=== PATIENT | female | born 1950 | race Caucasian/White ===

== ENCOUNTER 2018-03-05 11:17 | Outpatient (REF) | payer OTHER, SELFPAY ==
[2018-03-05 22:24] LABS: ALT 35 U/L (12-78); AST 24 U/L (15-37); Albumin 3.7 g/dL (3.4-5.0); Alkaline Phosphatase 54 U/L (46-116); Anion Gap 6.8 mmol/L (3-11); BUN 16 mg/dL (7-18); Bilirubin, Total 0.5 mg/dL (0.2-1.0); CO2 29.2 mmol/L (21.0-32.0); CREATININE 0.88 mg/dL (0.55-1.02); Calcium 8.9 mg/dL (8.5-10.1); Chloride 103 mmol/L (98-107); Cholesterol 275 mg/dL (50-200); Glucose 96 mg/dL (70-100); HDL Cholesterol 48 mg/dL (40-60); LDL CHOLESTEROL 202 mg/dL (<100); Potassium 4.3 mmol/L (3.5-5.1); Sodium 139 mmol/L (136-145); Total Protein 7.1 g/dL (6.4-8.2); Triglyceride 135 mg/dL (30-150)
[2018-03-05 22:28] LABS: Hemoglobin A1C 5.4 % (4.5-6.2)
== END 2018-03-05 11:37 ==
LOC: NCHCN 11:17
PROVIDERS: PCP Family Medicine; Visit Provider Family Medicine
DX: E88.81 Metabolic syndrome and other insulin resistance (principal)
CPT/HCPCS: 80053; 80061; 83721; 83036

== ENCOUNTER 2019-01-22 10:29 | Outpatient (REF) | payer OTHER, SELFPAY ==
[2019-01-22 22:17] LABS: ALT 29 U/L (12-78); AST 16 U/L (15-37); Albumin 3.7 g/dL (3.4-5.0); Alkaline Phosphatase 59 U/L (46-116); Anion Gap 9.2 mmol/L (3-11); BUN 13 mg/dL (7-18); Bilirubin, Total 0.3 mg/dL (0.2-1.0); CO2 29.8 mmol/L (21.0-32.0); CREATININE 0.74 mg/dL (0.55-1.02); Calculated LDL 233 mg/dL; Chloride 102 mmol/L (98-107); Cholesterol 312 mg/dL (50-200); Glucose 109 mg/dL (70-100); HDL Cholesterol 48 mg/dL (40-60); Potassium 4.1 mmol/L (3.5-5.1); Sodium 141 mmol/L (136-145); Total Protein 7.2 g/dL (6.4-8.2); Triglyceride 155 mg/dL (30-150)
[2019-01-25 12:22] LABS: Vitamin D 25 Total 33.4 ng/ml (30-100)
== END 2019-01-22 10:49 ==
LOC: NCHCN 10:29
PROVIDERS: PCP Family Medicine; Visit Provider Family Medicine
DX: Z00.00 Encounter for general adult medical examination without abnormal findings (principal); E88.81 Metabolic syndrome and other insulin resistance; I10 Essential (primary) hypertension; E78.5 Hyperlipidemia, unspecified; R73.09 Other abnormal glucose; E66.9 Obesity, unspecified
CPT/HCPCS: 80053; 80061; 82306; 83721

== ENCOUNTER 2019-08-22 18:06 | Emergency (ER) | payer OTHER, SELFPAY ==
[2019-08-22] VITALS (23 sets, daily range): BP systolic 147–201; BP diastolic 67–93; PULSE 60–79; RESP 10–20; O2SAT 95–98
--- NOTE | 2019-08-22 18:15 | DI.CT_ITS ---
EXAM: CT HEAD WO CLINICAL HISTORY: Headache and mild confusion COMPARISON: No exams were available for comparison FINDINGS: Noncontrast cranial CT was performed. There are mild changes of cerebral atrophy and mild patchy are as of decreased attenuation noted in periventricular white matter consistent with microvascular ische noel change. No evidence of acute intracranial hemorrhage, mass effect, or midline shift. The orbital and tempora l bone structures appear unremarkable. Mastoid air cells and paranasal sinuses predominantly clear w ith mild mucoperiosteal thickening maxillary antra and a probable small left maxillary retention cyst . IMPRESSION: No evidence of acute intracranial process.
--- NOTE | 2019-08-22 18:27 | ED.GENADUL_ITS ---
Discharge Plan Disposition Patient Disposition: HOME Condition: Improving Discharge Details Chief Complaint: AMS/LOC Clinical Impression: Migraine headache Primary Care Provider: Gildardo Pizano ED Provider: Pastor Millan Home Meds and New Rx's Prescriptions: Continued Flovent Diskus 50 MCG blister with device 50 mcg Inhalation DAILY RF: 0 citalopram 40 MG tablet 40 mg PO DAILY RF: 0 losartan-hydrochlorothiazide 1 EACH tablet 1 ea PO DAILY RF: 0 One Daily Womens 50 Plus 0.4 MG tablet 0.4 mg PO DAILY RF: 0 Discharge Instructions Additional Instructions: Home to rest this evening. Please sleep in a dark, quiet room. Continue small, frequent sips of fluids to maintain hydration. Continue your regular medications. Return to the ER if develop a fever, recurrent headache, or any other acute concerns. Medical Decision Making 69-year-old female presents with with the onset of a headache this afternoon at home with some mild confusion. She has known hypertension, also history of migraine headaches. She arrives slightly hypertensive but with otherwise unremarkable vital signs and her neurologic examination is normal. Differential diagnosis includes CVA, migraine headache, fugue-like state. Patient IV access established, referred for stat CT scan of the head, as well as CT images. CT with no evidence for acute infarct, hemorrhage, or mass-effect. Patient given ketorolac. Labs are reassuring. The CBC is within normal limits, chemistries note slight elevation of the BUN to 19, otherwise unremarkable with normal LFTs, normal troponin. Patient is improving. Following ketorolac, acetaminophen and a small amount of fluid administration, the patient is without further complaint and blood pressure has improved to 177/67. She states is now is beginning to feel like a migraine. She is improved and appropriate for discharge back to home. ECG Data Attestation: I personally reviewed and interpreted this ECG (s) as follows: Interpretation: Normal sinus rhythm, rate is 64, QRS is narrow, no ST segment elevation present, QTC of 448 HPI General Mode of arrival: ambulatory . Date/Time Provider Initiated Documentation: 08/22/19 18:08 . Limitations to Documentation: no limitations . Information obtained by: patient and family . History of Present Illness 69 year old F presents to the emergency department with the chief complaint of Headache and confusion at home, now improving., described as moderate and similar to prior episodes, Quality is described as dull and constant, and is localized to the head. Patient reports no radiation. Patient started experiencing this hour(s) and it has been other (Improving). No relieving factors improve symptom(s), No exacerbating factors reported . Patient notes headaches; denies fever/chills, loss of appetite, nausea/vomiting, syncope and weakness. Patient did receive the following treatments prior to arrival, none Related Data Home Medications Medication Instructions Recorded Confirmed Flovent Diskus 50 mcg INHALATION DAILY 01/03/17 08/22/19 One Daily Womens 50 Plus 0.4 mg PO DAILY 01/03/17 08/22/19 citalopram 40 mg PO DAILY 01/03/17 08/22/19 losartan-hydrochlorothiazide 1 ea PO DAILY 01/03/17 08/22/19 Allergies Allergy/AdvReac Type Severity Reaction Status Date / Time bupropion [From Wellbutrin] Allergy Unverified 08/22/19 18:24 prednisone Allergy Unverified 08/22/19 18:24 simvastatin [From Zocor] AdvReac Unverified 08/22/19 18:24 varenicline [From Chantix] AdvReac Unverified 08/22/19 18:24 General Stated Complaint: AMS/LOC RONNY: 2 Review of Systems Narrative: Seem to have some repetitive questioning at home, now improving, headache is improving. No fall or injury. No difficulty with speech or gait. No focal weakness. 8 systems reviewed and otherwise negative [facility] Social History Smoking/Tobacco Use Status: Former Tobacco Use Do you feel safe in your relationship?: Yes Exam Narrative Exam Narrative: GEN: awake, alert, oriented 3. Pleasant, well groomed, interactive. HEAD: Normocephalic, atraumatic ENT: Mucous membranes moist, oropharynx unremarkable, External ear exam unremarkable EYES: PERRL, EOMI NECK: Full ROM, no KARINA, no menigismus CHEST/RESP: Nontender, clear to auscultation bilateral, no wheeze/rhonchi/rales CARDIOVASCULAR: RRR, no murmur, rub natacha. 2+ Rad pulse bilateral ABDOMEN: Soft, nontender, no mass. +Bowel sounds EXT: Full ROM, no edema, no rash Neuro: Grossly normal neurologic exam, conversant, interactive. Cranial nerves II through XII intact. Visual levy intact to confrontation. Gait is narrow based with good heel strike and the patient ambulates independently. Psych: Speech fluent, thoughts congruent, affect normal Course Vital Signs Vital signs: Vital Signs Pulse 78 08/22/19 18:12 Respiratory Rate 16 08/22/19 18:12 Blood Pressure 201/93 H 08/22/19 18:12 Pulse 78 08/22/19 18:12 Respiratory Rate 16 08/22/19 18:12 Respiratory Effort 08/22/19 18:15 Respiratory Depth Normal 08/22/19 18:15 Respiratory Pattern Normal 08/22/19 18:15 Blood Pressure 201/93 H 08/22/19 18:12 Blood Pressure Position Supine 08/22/19 18:12 Oxygen Delivery Method Room Air 08/22/19 18:12 Oxygen Flow Rate 0 08/22/19 18:12 Pain Level 0 08/22/19 18:12 Comment 08/22/19 18:12
[2019-08-22] MEDS: Normal Saline 1,000 ML 125 ML IV (18:41)
[2019-08-22 18:42] LABS: Abs Immature Grans 0.01 k/cumm (0.0-0.09); Absolute Basophil Count 0.02 k/cumm (0.0-0.2); Absolute Eosinophil Count 0.14 k/cumm (0.0-0.7); Absolute Lymphocyte Count 2.16 k/cumm (1.2-3.4); Absolute Monocyte Count 0.68 k/cumm (0.11-0.7); Absolute Neutrophil Count 4.35 k/cumm (1.2-6.7); Basophils % 0.3; Eosinophils % 1.9; HCT 40.1 % (36.0-46.0); HGB 13.9 g/dL (12.0-15.5); Immature Grans % 0.1 %; Lymphocytes % 29.3; Mean Corp. HGB Concentration 34.7 g/dL (32.0-36.0); Mean Corpuscular Hemoglobin 29.8 pg (27.0-33.0); Mean Corpuscular Volume 86.1 fL (80-95); Mean Platelet Volume 9.7 fL (8.0-11.0); Monocytes % 9.2; Neutrophils % 59.2; Platelet Count 325 x1000/uL (130-400); RBC 4.66 m/cumm (4.00-5.20); RBC Distribution Width 12.1 % (11.7-14.6); White Blood Cell Count 7.36 k/cumm (4.4-10.8)
[2019-08-22] MEDS: Ketorolac 15 MG/ML VIAL IVP (18:49)
--- NOTE | 2019-08-22 18:54 | DI.VRAD_ITS ---
PROCEDURE INFORMATION: Exam: CT Head Without Contrast Exam date and time: 08/22/2019 6:37 PM Age: 69 years old Clinical indication: Pain; Other: Mild confusion; Headache not specified TECHNIQUE: Imaging protocol: Computed tomography of the head without contrast. COMPARISON: No relevant prior studies available. FINDINGS: Brain: Age-related involutional changes and chronic microvascular ischemic disease. No evidence for acute transcortical infarct. No mass effect or midline shift. No extra-axial collection. No acute intracranial hemorrhage. Basal cisterns are patent. Ventricles: Normal. No ventriculomegaly. Bones/joints: Unremarkable. No acute fracture. Sinuses: Polyp versus retention cyst within the left maxillary sinus. Mucosal thickening involving the bilateral maxillary sinuses. Mastoid air cells: Visualized mastoid air cells are well aerated. Orbits: Bilateral cataract surgery. Soft tissues: Unremarkable. IMPRESSION: No evidence for acute transcortical infarct, acute intracranial hemorrhage, or mass effect. Dictated and Authenticated by: Nico Edge MD. Ordering:MARIELLE Baumann MD
[2019-08-22 19:02] LABS: ALT 19 U/L (14-59); AST 16 U/L (15-37); Alkaline Phosphatase 54 U/L (46-116); Anion Gap 6.6 mmol/L (3-11); BUN 19 mg/dL (7-18); Bilirubin, Total 0.3 mg/dL (0.2-1.0); CO2 28.4 mmol/L (21.0-32.0); CREATININE 0.78 mg/dL (0.55-1.02); Calcium 9.1 mg/dL (8.5-10.1); Chloride 102 mmol/L (98-107); Glucose 94 mg/dL (74-106); Magnesium 1.9 mg/dL (1.8-2.4); Potassium 3.5 mmol/L (3.5-5.1); Sodium 137 mmol/L (136-145); Total Protein 7.8 g/dL (6.4-8.2); Troponin I < 0.05 ng/Ml (<0.06)
[2019-08-22] MEDS: ACETAMINOPHEN 1,000 MG/100 ML BTL 400 MG IVPB (19:28)
== END 2019-08-22 20:20 | disposition home or self-care (01) ==
PROVIDERS: Emergency Provider Emergency Medicine; PCP Family Medicine
DX: R41.82 Altered mental status, unspecified (principal); G43.909 Migraine, unspecified, not intractable, without status migrainosus; I10 Essential (primary) hypertension
CPT/HCPCS: 36415; 80053; 93005; 96361; 96374; 96375; 99285; 70450; 83735; 84484; 85025; 93010; 99284; J0131; J1885

== ENCOUNTER 2021-01-09 17:05 | Outpatient (REF) | payer OTHER, SELFPAY ==
[2021-01-09 21:15] LABS: Hemoglobin A1C 5.4 % (<5.7)
[2021-01-09 21:22] LABS: ALT 24 U/L (14-59); AST 17 U/L (15-37); Albumin 3.7 g/dL (3.4-5.0); Alkaline Phosphatase 48 U/L (46-116); Anion Gap 7.6 mmol/L (3-11); BUN 18 mg/dL (7-18); Bilirubin, Total 0.4 mg/dL (0.2-1.0); CO2 30.4 mmol/L (21.0-32.0); CREATININE 0.9 mg/dL (0.55-1.02); Chloride 103 mmol/L (98-107); Glucose 97 mg/dL (74-106); Potassium 4.3 mmol/L (3.5-5.1); Sodium 141 mmol/L (136-145); Total Protein 7.2 g/dL (6.4-8.2)
[2021-01-10 19:59] LABS: Calculated LDL 191 mg/dL (<100); Cholesterol 283 mg/dL (<200); HDL Cholesterol 41 mg/dL (40-60); Triglyceride 255 mg/dL (<150)
== END 2021-01-09 17:06 | disposition home or self-care (01) ==
LOC: NCHCN 17:05
PROVIDERS: PCP Family Medicine; Visit Provider Family Medicine
DX: R73.03 Prediabetes (principal); E88.81 Metabolic syndrome and other insulin resistance; E78.5 Hyperlipidemia, unspecified; E66.3 Overweight; I10 Essential (primary) hypertension
CPT/HCPCS: 80053; 80061; 83036

== ENCOUNTER → 2021-01-30 02:15 | Outpatient (CLI) | payer OTHER, SELFPAY ==
--- NOTE | 2021-01-30 14:54 | DI.MAMMO_ITS ---
Exam(s) MAMMO SCREENING EXAM: MAMMO SCREENING CLINICAL HISTORY: SCREENING, Z12.31. TECHNIQUE: Bilateral full field digital CC and MLO mammographic images were obtained with 3D tomosyn thesis and utilizing computer aided detection (CAD). COMPARISON: Prior outside mammograms dating back to 2006, the most recent being December 2018. FINDINGS: There are no CAD designations. There are no new spiculated masses nor malignant appearing microcalcification groups. Small benign-appearing nodule upper outer quadrant left breast is unchanged from prior studies and cam s appearance of benign intramammary lymph node. There is no significant architectural distortion nor skin thickening-retraction. IMPRESSION: No radiographic evidence of malignancy. BI-RADS Category 1 - Negative Breast Density - Category B - Scattered areas of fibroglandular density Breast density Category C or D implies that the patient has dense breast tissue. Dense breast tissue can make it harder to find cancer on a mammogram. Dense breast tissue is also associated with an incr eased risk of breast cancer. This information about the result of the mammogram report was provided to the patient to raise their awareness. Use this report when you speak with the patient about their risks for breast cancer, which includes their family history. At that time, you may recommend additional screening tests (Ultrasoun d or MRI) as these tests may add significant information. A negative radiographic report should not delay biopsy if a dominant or clinically suspicious mass is present. Up to ten percent of cancers are not identified on mammography. A negative report may reinforce clinical impression. Adenosis and dense breasts may obscure an underlying neoplasm. False positive reports average 6 to 10%. Patient will receive a letter notifying them of these results.
== END ==
PROVIDERS: PCP Family Medicine; Visit Provider Family Medicine
DX: Z12.31 Encounter for screening mammogram for malignant neoplasm of breast (principal)
CPT/HCPCS: 77063; 77067

== ENCOUNTER 2021-02-08 03:03 | Outpatient (CLI) | payer OTHER, SELFPAY ==
--- NOTE | 2021-02-08 | DI.DEXA_ITS ---
Exam(s) XR DEXA BONE DENSITY W/WO GRACIE EXAM: XR DEXA BONE DENSITY W/WO GRACIE CLINICAL HISTORY: SCREENING FOR OSTEOPOROSIS,Z78.0,OSTEOPENIA,M85.80 TECHNIQUE: COMPARISON: No exams were available for comparison FINDINGS: Lateral Spine Image: Unremarkable. No compression deformities identified. Left hip: Total T-Score: -0.4 Total Z-Score: 1.1 T- and Z-scores: Within normal limits. Lumbar Spine: Total T-Score: -0.3 Total Z-Score: 1.8 T- and Z-scores: Within normal limits. IMPRESSION: No evidence of osteoporosis.
== END 2021-02-08 03:23 ==
PROVIDERS: PCP Family Medicine; Visit Provider Family Medicine
DX: Z13.820 Encounter for screening for osteoporosis (principal); M85.80 Other specified disorders of bone density and structure, unspecified site; Z78.0 Asymptomatic menopausal state
CPT/HCPCS: 77080

== ENCOUNTER 2021-02-27 11:18 | Outpatient (REF) | payer MEDICARE, SELFPAY ==
[2021-02-27 15:07] LABS: Abs Immature Grans 0.02 10^3/uL (0.0-0.06); Absolute Basophil Count 0.03 10^3/uL (0.0-0.2); Absolute Eosinophil Count 0.18 10^3/uL (0.0-0.7); Absolute Lymphocyte Count 1.42 10^3/uL (1.2-3.4); Absolute Monocyte Count 0.49 10^3/uL (0.1-0.8); Absolute Neutrophil Count 4.22 10^3/uL (1.2-6.7); Basophils % 0.5; Eosinophils % 2.8; HCT 39.7 % (36.0-46.0); HGB 12.7 g/dL (11.2-15.7); Immature Grans % 0.3; Lymphocytes % 22.3; MCH 28.5 pg (27.0-33.0); MPV 10.2 fL (8.0-11.0); Monocytes % 7.7; Neutrophils % 66.4; Nucleated RBC 0 %; Platelet Count 303 10^3/uL (130-400); RBC 4.46 10^6/uL (3.93-5.22); RDW 11.4 % (11.7-14.6); RDW-SD 36.6 fL; WBC 6.36 10^3/uL (4.4-10.8)
[2021-02-27 15:55] LABS: ALT 31 U/L (14-59); AST 21 U/L (15-37); Albumin 3.7 g/dL (3.4-5.0); Alkaline Phosphatase 54 U/L (46-116); BUN 12 mg/dL (7-18); Bilirubin, Total 0.4 mg/dL (0.2-1.0); CREATININE 0.8 mg/dL (0.55-1.02); Calcium 9.3 mg/dL (8.5-10.1); Calculated LDL 198 mg/dL (<100); Chloride 103 mmol/L (98-107); Cholesterol 282 mg/dL (<200); Glucose 90 mg/dL (74-106); HDL Cholesterol 48 mg/dL (40-60); Potassium 4.6 mmol/L (3.5-5.1); Sodium 141 mmol/L (136-145); TSH (W/Ref FT4) 1.16 uIU/mL (0.36-3.74); Total Protein 7.2 g/dL (6.4-8.2); Triglyceride 184 mg/dL (<150)
[2021-02-28 11:56] LABS: Hemoglobin A1C 5.6 % (<5.7)
== END 2021-02-27 11:19 | disposition home or self-care (01) ==
LOC: NCHCN 11:18
PROVIDERS: PCP Family Medicine; Visit Provider Family Medicine
DX: Z00.00 Encounter for general adult medical examination without abnormal findings (principal); E78.5 Hyperlipidemia, unspecified; R68.83 Chills (without fever)
CPT/HCPCS: 80053; 80061; 83036; 84443; 85025

== ENCOUNTER 2021-03-19 10:34 | Emergency (ER) | payer MEDICARE, SELFPAY ==
--- NOTE | 2021-03-19 10:30 | RT.EKG_ITS ---
APPROVED REPORT Exam: Resting ECG Reason for Exam: dizzy Patient Location: E HR:64 bpm ECG Measurements Heart Rate 64 AXIS TN 221 P 34 QRSd 81 QRS 14 QT 458 T 43 QTc 472 Conclusion Sinus rhythm...normal P axis, V-rate 60- 99 Prolonged TN interval...TN >220, V-rate 50- 90 Probable anteroseptal infarct, recent...Q, ST>0.15mV, T neg, V1-V2 no STEMI I have reviewed and interpreted ECG and agree with software generated interpretation.
[2021-03-19 10:42] VITALS: BP 167/89; PULSE 67; RESP 18; TEMP 36.5; O2SAT 99
[2021-03-19 10:50] VITALS: RESP 18
[2021-03-19 11:33] LABS: Abs Immature Grans 0.02 10^3/uL (0.0-0.06); Absolute Basophil Count 0.02 10^3/uL (0.0-0.2); Absolute Eosinophil Count 0.19 10^3/uL (0.0-0.7); Absolute Lymphocyte Count 1.53 10^3/uL (1.2-3.4); Absolute Monocyte Count 0.72 10^3/uL (0.1-0.8); Absolute Neutrophil Count 5.24 10^3/uL (1.2-6.7); Basophils % 0.3; Eosinophils % 2.5; HGB 12.2 g/dL (11.2-15.7); Immature Grans % 0.3; Lymphocytes % 19.8; MCV 87.9 fL (80-95); MPV 9.3 fL (8.0-11.0); Monocytes % 9.3; Neutrophils % 67.8; Nucleated RBC 0 %; Platelet Count 253 10^3/uL (130-400); RBC 4.21 10^6/uL (3.93-5.22); RDW 11.6 % (11.7-14.6); RDW-SD 37.4 fL; WBC 7.72 10^3/uL (4.4-10.8)
[2021-03-19] MEDS: Normal Saline 50 ML ×3 (11:51→13:43)
[2021-03-19] MEDS: Normal Saline 500 ML IV ×2 (11:51→13:43)
[2021-03-19] MEDS: Prochlorperazine 10 MG/2 ML VIAL 5 MG IVP ×2 (11:51→13:44)
[2021-03-19 11:56] LABS: ALT 24 U/L (14-59); AST 17 U/L (15-37); Albumin 3.6 g/dL (3.4-5.0); Alkaline Phosphatase 56 U/L (46-116); Anion Gap 3.2 mmol/L (3-11); BUN 23 mg/dL (7-18); Bilirubin, Total 0.4 mg/dL (0.2-1.0); CO2 32.8 mmol/L (21.0-32.0); CREATININE 0.9 mg/dL (0.55-1.02); Chloride 104 mmol/L (98-107); Glucose 94 mg/dL (74-106); Magnesium 1.9 mg/dL (1.8-2.4); Potassium 3.9 mmol/L (3.5-5.1); Sodium 140 mmol/L (136-145); TSH 2.07 uIU/mL (0.36-3.74); Total Protein 7.5 g/dL (6.4-8.2); Troponin I < 0.05 ng/mL (<0.06)
[2021-03-19 12:01] LABS: ESR 13 mm/hr (0-30)
[2021-03-19 12:15] VITALS: BP 147/57; PULSE 71; RESP 18; TEMP 36.1; O2SAT 98
--- NOTE | 2021-03-19 13:12 | DI.CT_ITS ---
Exam(s) CT BRAIN NECK CTA EXAM: CT BRAIN NECK CTA CLINICAL HISTORY: vertical diplopia, cam. TECHNIQUE: Imaging Protocol: Axial CT angiography was performed with multi-slice acquisition and mu lti-planar and/or 3D reconstructions. CONTRAST MATERIAL: Intravenous: Omnipaque 350 Contrast volume:100 cc COMPARISON: No exams were available for comparison FINDINGS: CTA Neck W: Aortic arch anatomy: The aortic arch anatomy is conventional. No evidence of significant stenosis at the origin the great vessels off the aortic arch. Anterior circulation: Both common carotid arteries ascend with normal luminal diameters, somewhat medially located and the bifurcations are also medially located. There is no significant stenosis at the carotid bifurcations and proximal internal carotid arteries nor in the internal carotid arteries higher up in the neck an d these vessels are demonstrated to be patent in the skull base. Posterior circulation: Both vertebral arteries originate off of the subclavian arteries and ascend with approximately equal luminal diameters in the foramen transverse area. No evidence of dissection or intraluminal thrombus . At the skull base both vertebral arteries to contribute to the formation of the basilar artery. CTA Brain W: Anterior circulation: Internal carotid arteries are patent in the skull base and carotid canals as well as within the joe nous sinuses. Supraclinoid aspects are patent. Middle cerebral arteries are patent. A1 segments ar e patent bilaterally as are the anterior cerebral arteries. No evidence of aneurysm at the level of the anterior communicating artery. Posterior circulation: Basilar artery is patent. No intraluminal thrombus nor dissection. Distally basilar artery gives of f patent bilateral superior cerebellar arteries and above this level terminates as patent bilateral p osterior cerebral arteries. There is no evidence of aneurysm at the tip of the basilar artery nor el sewhere in the [id number]. No obvious venous sinus thrombosis. There is asymmetry in the size the transverse sinuses which is n ot uncommon. CT BRAIN: There is no evidence of intracranial hemorrhage, mass effect, or shift of midline structures. There are no extra-axial fluid collections. Ventricles are not enlarged or shifted. There are no ring enh ancing lesions in the brain and no abnormal meningeal enhancement. There is abundant white matter hypodensity bilateral consistent with probable chronic ischemic change s. IMPRESSION: 1. No evidence of significant stenosis in the carotid arteries in the neck. Vertebral arteries are a lso patent. 2. No evidence of thrombosis of intracranial vessels. No aneurysm seen. 3. Abundant bilateral white matter hypodensity consistent with probable chronic small vessel diseas e. 4. If clinically indicated follow-up MRI/MRA can be performed RADIATION DOSE DELIVERED: 2,193.63mGy.cm Total DLP DATA REPOSITORY: All CT scans at this facility are submitted to the National Radiology Data Registry (NRDR) Dose Index Registry (DIR) with the [employer] ([employer]). RADIATION OPTIMIZATION: All CT scans at this facility use at least one of these dose optimization te chniques: automated exposure control; mA and/or kV adjustment per patient size (includes targeted exa ms where dose is matched to clinical indication); or iterative reconstruction.
[2021-03-19] MEDS: Omnipaque 350 MG/ML 100 ML BTL 85 ML IJ (13:16)
[2021-03-19] MEDS: Acetaminophen 500 MG TAB 1000 MG PO (13:43)
--- NOTE | 2021-03-19 14:04 | W.ED.GENAD ---
Discharge Plan Disposition Patient Disposition: AGAINST MEDICAL ADVICE Condition: Poor Discharge Details Clinical Impression: Vision changes, Embolic cerebral infarction Primary Care Provider: Gildardo Pizano ED Provider: Luly Nuñez Home Meds and New Rx's Prescriptions: New clopidogrel [Plavix] 75 mg tablet 75 mg PO DAILY Qty: 14 RF: 0 Continued aspirin 81 mg tablet 81 mg PO DAILY RF: 0 Flovent Diskus 50 MCG blister with device 50 mcg Inhalation DAILY RF: 0 citalopram 40 MG tablet 40 mg PO DAILY RF: 0 losartan-hydrochlorothiazide 1 EACH tablet 1 ea PO DAILY RF: 0 One Daily Womens 50 Plus 0.4 MG tablet 0.4 mg PO DAILY RF: 0 Discharge Instructions Instructions: Acute Headache (ED), Self Care Measures After a Stroke (ED) Additional Instructions: Your imaging is concerning for blood clot in your brain. I am concerned that this potentially could worsen or the source could spread and you may have blood clots to travel other areas. Admission was recommended. However, you are treating to leave AGAINST MEDICAL ADVICE. As was recommended by neurology, please continue with your aspirin and add Plavix as ordered daily. An outpatient echocardiogram has been ordered. You will need to return tomorrow for Holter monitor application by respiratory therapy. Please call your primary care tomorrow to schedule appointment as soon as possible. Please return immediately with any new or worsening symptoms. Referrals: Gildardo Pizano [Primary Care Provider] - Naomi Jack MD [ [facility] STAFF PHYSICIAN] - Discharge Data Discharge Date/Time-TO BE ENTERED AT DEPARTURE: 03/19/21 19:18 Medical Decision Making <JASIEL Ronquillo - Last Filed: 03/20/21 09:10> Patient feeling symptomatically improved after migraine medication, CTA to did not show acute abnormality, case discussed with Dr. Jack, neurology recommended CTA head and neck With change patient for discharge home when we performed an ambulatory trial and patient symptoms returned other now she is having horizontal diplopia with lightheadedness She was given a dose of Decadron and encouraged to hydrate, given fluids MRI of patient's brain was ordered and she will need neurology consultation after MRI should her symptoms persist with an additional ambulatory trial She is laughing and comfortable in the room I did go back and reassessed the patient and she is now telling me that she had a runny nose associated with her headache, she is Covid vaccinated I did order a Covid swab Patient is afebrile otherwise nontoxic, laughing in the room No acute distress CT: On diffusion imaging there are 3 small adjacent foci of restricted diffusion in the posterior right parietal lobe; also similar single finding on the opposite-left side occipital parietal region. Findings are probably consistent with emboli. Close follow-up recommended Case discussed with Dr. Grewal, neurology and she recommends admission to the hospital for telemetry monitoring and echocardiogram Will order aspirin, Plavix, patient unfortunately is listed as being allergic to antilipidemic's, will hold on this for now <JASIEL Tay - Last Filed: 03/20/21 08:30> Care transition to myself from Krista Aguilar PA-C. Please see her initial note regarding history, presentation and exam. In brief, patient pleasant 70-year-old female who presented today with concern for vertical diplopia and frontal headache. Patient underwent CT as well as MRI for further evaluation of her symptoms. Ultimately, MRI was concerning for 3 small adjacent foci of diffusion in the posterior right parietal lobe also similar finding on the contralateral occipital parietal region. Concerning for emboli. Dr. Jack was consulted who recommended admission with telemetry monitoring, echocardiogram, aspirin Plavix. Patient had taken 3 aspirin prior to arrival. Plavix was given. At the time I assumed care, consultation with hospitalist for admission with pending Consulted with Dr. Hurst who will come to evaluate [facility] patient. After patient was evaluated by Dr. Hurst, she is refusing admission. I reevaluated the patient. She would like to be d/c'ed to home. She and I had a lengthy discussion about this. I advised admission for telemonitoring, echocardiagram as was recommended by Dr. Grewal. I am concercend that her neurologic status may worsen as multiple clots were noted on her MRI and that she has had difficulty with ambulation since being here. She does seem to be doing better now and is ambulating without assistance. Despite my concerns about worsening neurologic status or other disability, potentially , associated with the emboli, she requests to leave AMA. She demonstrates decision making capacity. Have ordered echo as outpatient, holter monitor. Will prescribe Plavix as was advised by neurology. She is aware that she may return at any time for continued care. I encouraged that she f/u with PCP as soon as possible. HPI <JASIEL Ronquillo - Last Filed: 03/20/21 09:10> General Mode of arrival: ambulatory. Date/Time Provider Initiated Documentation: 03/19/21 10:55. Limitations to Documentation: no limitations. Information obtained by: patient. HPI Narrative: RA this 70-year-old female presents with report of acute onset of oral and noncardiac burning followed by vertical diplopia and subsequently frontal headache. States she feels lightheaded but denies any dizziness. Denies chest pain or shortness of breath. Denies dizziness or weakness. Denies any strength or sensation change. States she never had vertical diplopia before but does have a history of migraine headaches. She states that the diplopia is improving. She states that the headache is frontal in nature. She denies worst headache of life. She denies any recent falls or injuries. She denies neck manipulation, chest pain, shortness of breath. She denies any fever or chills. She states that she was having some difficulty ambulating secondary to lightheadedness associated. She did not take any medications prior to arrival. She does have a history of migraines with aura. She not had one for several years reportedly. She denies any change in medication. Related Data Home Medications Medication Instructions Recorded Confirmed Flovent Diskus 50 mcg INHALATION DAILY 01/03/17 08/22/19 One Daily Womens 50 Plus 0.4 mg PO DAILY 01/03/17 03/19/21 citalopram 40 mg PO DAILY 01/03/17 03/19/21 losartan-hydrochlorothiazide 1 ea PO DAILY 01/03/17 03/19/21 aspirin 81 mg tablet 81 mg PO DAILY 08/30/19 03/19/21 clopidogrel [Plavix] 75 mg PO DAILY #14 tab 03/19/21 Previous Rx's Medication Instructions Recorded clopidogrel [Plavix] 75 mg PO DAILY #14 tab 03/19/21 Allergies Allergy/AdvReac Type Severity Reaction Status Date / Time bupropion [From Wellbutrin] Allergy Unverified 03/19/21 10:48 prednisone Allergy Unverified 03/19/21 10:48 simvastatin [From Zocor] AdvReac Unverified 03/19/21 10:48 varenicline [From Chantix] AdvReac Unverified 03/19/21 10:48 General Stated Complaint: Dizzy/Sync RONNY: 3 Review of Systems <JASIEL Ronquillo Last Filed: 03/20/21 09:10> All systems reviewed & are unremarkable except as noted in HPI and below PFSH <JASIEL Ronquillo Last Filed: 03/20/21 09:10> Medical History Abnormal sensation of upper extremity Allergic rhinitis Anxiety with depression Chronic diarrhea Chronic eczematous otitis externa of both ears Diarrhea Hyperlipidemia Hypertension Metabolic syndrome Obesity Pre-diabetes Preventative health care Retrograde amnesia Sleep disorder Social History Smoking/Tobacco Use Status: Former Tobacco Use Smoking risk assessment performed?: Yes Alcohol Intake: current Alcohol Intake frequency: holidays/special occasions only Drug use: Never Substance use type: does not use Details: CBD for pack pain Do you feel safe at home: Yes Do you feel safe in your relationship?: Yes Exam <JASIEL Ronquillo Last Filed: 03/20/21 09:10> Const General: cooperative, comfortable and no acute distress HENMT Face and sinus: normal facial exam Mouth: oral mucosae normal Throat: uvula midline Eyes Sclera: sclerae normal Pupils: PERRL EOM: EOM intact bilaterally Neck Other: No meningismus, no carotid bruit Chest Chest: normal inspection of the chest Resp Effort & Inspection: normal respiratory effort Auscultation: clear to auscultation bilaterally Cardio Rate: regular rate Rhythm: regular rhythm Heart Sounds: no murmurs Skin General skin exam: no rashes or lesions noted Neuro General: patient alert and patient oriented x3 Cranial Nerves: CN's II-XI intact bilaterally and tongue midline Cognition: normal cognition Speech: speech normal Gait: gait assisted Motor: muscle tone normal throughout and strength 5/5 throughout Sensory Exam: no sensory deficits noted Other: Negative [id number], negative heel harvey, negative pronator drift Extrem Other: Distal pulses intact Course <JASIEL Ronquillo Last Filed: 03/20/21 09:10> Vital Signs Vital signs: Vital Signs Temperature 36.5 C 03/19/21 10:42 Pulse 67 03/19/21 10:42 Respiratory Rate 18 03/19/21 10:42 Blood Pressure 167/89 H 03/19/21 10:42 Pulse Oximetry 99 03/19/21 10:42 Temperature 36.1 C L 03/19/21 12:15 Temperature Source Tympanic 03/19/21 12:15 Pulse 71 03/19/21 12:15 Respiratory Rate 18 03/19/21 12:15 Respiratory Effort Non-Labored 03/19/21 10:50 Respiratory Depth Normal 03/19/21 10:50 Respiratory Pattern Normal 03/19/21 10:50 Blood Pressure 147/57 H 03/19/21 12:15 Blood Pressure Position Sitting 03/19/21 10:42 Pulse Oximetry 98 03/19/21 12:15 Oxygen Delivery Method Room Air 03/19/21 12:15 Oxygen Flow Rate 0 03/19/21 12:15 Pain Level 3 03/19/21 10:42 Lab/Test Results Lab/Test Results: Laboratory Tests Range/Units 03/19/21 03/19/21 03/19/21 11:08 11:09 11:26 WBC (4.4-10.8) 10^3/uL RBC (3.93-5.22) 10^6/uL Hgb (11.2-15.7) g/dL Hct (36.0-46.0) % MCV (80-95) fL MCH (27.0-33.0) pg MCHC (32.0-36.0) % RDW (11.7-14.6) % Plt Count (130-400) 10^3/uL MPV (8.0-11.0) fL Immature Gran % Neutrophils % Lymphocytes % Monocytes % Eosinophils % Basophils % Nucleated RBC % % Absolute Neutrophils (1.2-6.7) 10^3/uL Absolute Lymphocytes (1.2-3.4) 10^3/uL Absolute Monocytes (0.1-0.8) 10^3/uL Absolute Eosinophils (0.0-0.7) 10^3/uL Absolute Basophils (0.0-0.2) 10^3/uL ESR (0-30) mm/hr 13 Sodium Cancelled 140 Potassium Cancelled 3.9 Chloride Cancelled 104 Carbon Dioxide Cancelled 32.8 H Anion Gap Cancelled 3.2 BUN Cancelled 23 H Creatinine Cancelled 0.9 Estimated GFR/1.73 m2 Cancelled >= 60.00 Glucose Cancelled 94 Calcium Cancelled 9.0 Magnesium (1.8-2.4) mg/dL Total Bilirubin Cancelled 0.4 AST Cancelled 17 ALT Cancelled 24 Alkaline Phosphatase Cancelled 56 Troponin I Cancelled < 0.05 Total Protein Cancelled 7.5 Albumin Cancelled 3.6 TSH (0.36-3.74) uIU/mL 2.07 Range/Units 03/19/21 03/19/21 03/19/21 11:26 11:26 14:08 WBC (4.4-10.8) 10^3/uL 7.72 RBC (3.93-5.22) 10^6/uL 4.21 Hgb (11.2-15.7) g/dL 12.2 Hct (36.0-46.0) % 37.0 MCV (80-95) fL 87.9 MCH (27.0-33.0) pg 29.0 MCHC (32.0-36.0) % 33.0 RDW (11.7-14.6) % 11.6 L Plt Count (130-400) 10^3/uL 253 MPV (8.0-11.0) fL 9.3 Immature Gran % 0.3 Neutrophils % 67.8 Lymphocytes % 19.8 Monocytes % 9.3 Eosinophils % 2.5 Basophils % 0.3 Nucleated RBC % % 0 Absolute Neutrophils (1.2-6.7) 10^3/uL 5.24 Absolute Lymphocytes (1.2-3.4) 10^3/uL 1.53 Absolute Monocytes (0.1-0.8) 10^3/uL 0.72 Absolute Eosinophils (0.0-0.7) 10^3/uL 0.19 Absolute Basophils (0.0-0.2) 10^3/uL 0.02 ESR (0-30) mm/hr Sodium Potassium Chloride Carbon Dioxide Anion Gap BUN Creatinine Estimated GFR/1.73 m2 Glucose Calcium Magnesium (1.8-2.4) mg/dL 1.9 Total Bilirubin AST ALT Alkaline Phosphatase Troponin I Cancelled Total Protein Albumin TSH (0.36-3.74) uIU/mL Sign Out <JASIEL Ronquillo - Last Filed: 03/20/21 09:10> Sign Out Data: Sign Out Comment: pending admission, page at [phone] Last updated by Krista Aguilar PA at 03/19/21 16:56
--- NOTE | 2021-03-19 14:30 | DI.MRI_ITS ---
Exam(s) MR BRAIN WO EXAM: MR BRAIN WO CLINICAL HISTORY: dizziness, diplopia TECHNIQUE: Multiplanar multisequence MRI of the brain was performed. COMPARISON: No exams were available for comparison FINDINGS: CEREBRAL PARENCHYMA: There is no evidence of intracranial hemorrhage, mass effect, or shift of midline structures. There are no extra-axial fluid collections. Ventricles are not enlarged or shifted. There is no significant focal signal abnormality in the cerebellar hemispheres nor within the jennifer, m idbrain, and thalami. There is bilateral periventricular signal abnormality which is probably consistent with chronic small vessel disease, not associated with hemorrhage nor surrounding edema. On diffusion imaging there are 3 small adjacent foci of signal abnormality-restricted diffusion in th e posterior right parietal lobe. Is also a single similar 2-3 millimeters size focus of signal abnor mality in the posterior left occipital parietal region. PITUITARY GLAND: No mass nor parasellar abnormality. No obvious abnormality in the cavernous sinuses. FLOW VOIDS: The expected flow void are noted. No evidence of obvious aneurysm nor obvious vascular ma lformation. PARANASAL SINUSES: Post inflammatory retention cysts noted in the left maxillary sinus. No fluid lev els. ORBITS: No obvious findings. IMPRESSION: On diffusion imaging there are 3 small adjacent foci of restricted diffusion in the posterior right p arietal lobe; also similar single finding on the opposite-left side occipital parietal region. Findi ngs are probably consistent with emboli. Close follow-up recommended No evidence of intracranial hemorrhage. Report called to ER provider DATA REPOSITORY:
[2021-03-19] MEDS: Dexamethasone 10 MG/ML VIAL IVP (14:54)
[2021-03-19 15:04] VITALS: BP 144/62; PULSE 74; RESP 19; TEMP 36.2; O2SAT 96
[2021-03-19 15:18] LABS: Source Nasal/Nares
[2021-03-19 16:21] LABS: COVID-19 PCR Negative (Negative)
[2021-03-19] MEDS: Clopidogrel 75 MG TAB PO (17:15)
--- NOTE | 2021-03-19 18:43 | W.MEDCONSULT ---
Date of service: 03/19/21 Time of Service: 18:43 Assessment and Plan Assessment and plan (1) Spell of visual disturbance: Status: Acute Assessment and plan: I believe the spell today is most c/w complex migraine, based on h/o same, aura, ORELLANA and transient diplopia (presumably reflecting some brain stem dysfunction. Clearlt though there are MRI findings, suggestive of emboli, but by location these would not correlate with her symptoms (nor would they be c./w positive symptoms as manifested in aura). In short I would have to broadloom weaver these as coincidental, though it is always possible there may have been some bulbar lesion not yet appearing on MRI. In any case I would agree with CHRISTOPHER, tess and ECHO. Patient states she would like to have this testing as outpatient and declines admission. I have so informed ER and they will arrange AMA. History of Present Illness History of Present Illness Chief Complaint: ORELLANA, diplopia Narrative: 70 female with h/o migraine -- here to day with spell consisting of the following: visual aura of moving sparklers, followed by vertical diplopia and then ORELLANA (vertex?). In ER received Phenergan with resolution of sxx, though some degree of intermittent ORELLANA and then briefly horizontl diplopia. MRI brain shows bilateral lesions c/w small emboli, right parietal and lweft occipital. Case reviewed with Neurology who advise CHRISTOPHER (already on ASA, given dose Plavix) adn admissioin for tely and ECHO. At this time patient states she feels fine and is asking to go home. Review of Systems All systems reviewed & are unremarkable except as noted in HPI and below PFSH Medical History Abnormal sensation of upper extremity Allergic rhinitis Anxiety with depression Chronic diarrhea Chronic eczematous otitis externa of both ears Diarrhea Hyperlipidemia Hypertension Metabolic syndrome Obesity Pre-diabetes Preventative health care Retrograde amnesia Sleep disorder Social History Smoking/Tobacco Use Status: Former Tobacco Use Smoking risk assessment performed?: Yes Alcohol Intake: current Alcohol Intake frequency: holidays/special occasions only Drug use: Never Substance use type: does not use Details: CBD for pack pain Do you feel safe at home: Yes Do you feel safe in your relationship?: Yes Exam Narrative Exam Narrative: 144/82,74, 36.2, 19, 95% RA. HEENT atraumatic; neck supple w/o bruit; heart RRR with 1/6 sys murmur LUSB; abdomen soft and NT; extremities w/o edema; neuro Ox3, lucid, no aphasi, PERRL, EOMI, no nystagmus, no subjective diplopia, no facila asymmetry; motor 5/5 prop/distal Results Last Vital Signs Temp 36.2 C L 03/19/21 15:04 Pulse 74 03/19/21 15:04 Resp 19 03/19/21 15:04 BP 144/62 H 03/19/21 15:04 Pulse Ox 96 03/19/21 15:04 Labs Result diagrams: 03/19/21 11:26 03/19/21 11:26 Labs: Laboratory Results - last 24 hr 03/19/21 03/19/21 03/19/21 11:08 11:09 11:26 WBC RBC Hgb Hct MCV MCH MCHC RDW Plt Count MPV Immature Gran % Neutrophils % Lymphocytes % Monocytes % Eosinophils % Basophils % Nucleated RBC % Absolute Neutrophils Absolute Lymphocytes Absolute Monocytes Absolute Eosinophils Absolute Basophils ESR 13 Sodium Cancelled 140 Potassium Cancelled 3.9 Chloride Cancelled 104 Carbon Dioxide Cancelled 32.8 H Anion Gap Cancelled 3.2 BUN Cancelled 23 H Creatinine Cancelled 0.9 Estimated GFR/1.73 m2 Cancelled >= 60.00 Glucose Cancelled 94 Calcium Cancelled 9.0 Magnesium Total Bilirubin Cancelled 0.4 AST Cancelled 17 ALT Cancelled 24 Alkaline Phosphatase Cancelled 56 Troponin I Cancelled < 0.05 Total Protein Cancelled 7.5 Albumin Cancelled 3.6 TSH 2.07 COVID-19 Source SARS-CoV-2 (PCR) 03/19/21 03/19/21 03/19/21 11:26 11:26 14:08 WBC 7.72 RBC 4.21 Hgb 12.2 Hct 37.0 MCV 87.9 MCH 29.0 MCHC 33.0 RDW 11.6 L Plt Count 253 MPV 9.3 Immature Gran % 0.3 Neutrophils % 67.8 Lymphocytes % 19.8 Monocytes % 9.3 Eosinophils % 2.5 Basophils % 0.3 Nucleated RBC % 0 Absolute Neutrophils 5.24 Absolute Lymphocytes 1.53 Absolute Monocytes 0.72 Absolute Eosinophils 0.19 Absolute Basophils 0.02 ESR Sodium Potassium Chloride Carbon Dioxide Anion Gap BUN Creatinine Estimated GFR/1.73 m2 Glucose Calcium Magnesium 1.9 Total Bilirubin AST ALT Alkaline Phosphatase Troponin I Cancelled Total Protein Albumin TSH COVID-19 Source SARS-CoV-2 (PCR) 03/19/21 14:50 WBC RBC Hgb Hct MCV MCH MCHC RDW Plt Count MPV Immature Gran % Neutrophils % Lymphocytes % Monocytes % Eosinophils % Basophils % Nucleated RBC % Absolute Neutrophils Absolute Lymphocytes Absolute Monocytes Absolute Eosinophils Absolute Basophils ESR Sodium Potassium Chloride Carbon Dioxide Anion Gap BUN Creatinine Estimated GFR/1.73 m2 Glucose Calcium Magnesium Total Bilirubin AST ALT Alkaline Phosphatase Troponin I Total Protein Albumin TSH COVID-19 Source Nasal/Nares SARS-CoV-2 (PCR) Negative
--- NOTE | 2021-03-19 19:15 | HOLTER_ITS ---
APPROVED REPORT Conclusion This is a 48-hour Holter monitor ordered for dizziness Rhythm throughout was sinus with an average heart rate of 78. Minimum was 57, maximum 103 There were no ventricular dysrhythmias A total of 5 isolated atrial premature beats were seen There was no atrial fibrillation, no high-grade AV block, no pauses greater than 3 seconds Patient symptoms were reported, all of which corresponded to sinus rhythm in the 70s
--- NOTE | 2021-03-19 23:34 | NUR.NOTE ---
faxed the follow up for cardiology to care management , keli ed Nursing Note:
== END 2021-03-19 19:18 | disposition left against medical advice (07) ==
PROVIDERS: Physician Assistant; Emergency Provider Physician Assistant; PCP Family Medicine
DX: H53.2 Diplopia (principal); I63.40 Cerebral infarction due to embolism of unspecified cerebral artery; R42 Dizziness and giddiness; R51.9 Headache, unspecified; Z53.29 Procedure and treatment not carried out because of patient's decision for other reasons; Z20.822 Contact with and (suspected) exposure to COVID-19; Z03.818 Encounter for observation for suspected exposure to other biological agents ruled out
CPT/HCPCS: 36415; 70496; 70498; 80053; 85652; 87635; 93005; 96361; 96374; 96375; 96376; 99283; 99285; 70551; 83735; 84443; 84484; 85025; 93010; 93225; J0780; J1100; J3490

== ENCOUNTER 2021-03-23 00:42 | Outpatient (RCR) | payer OTHER, SELFPAY | END 2021-03-29 23:59 | disposition home or self-care (01) | LOC: RT 00:42 | PROVIDERS: PCP Family Medicine; Visit Provider Family Medicine | DX: R42 Dizziness and giddiness (principal); I49.1 Atrial premature depolarization | CPT/HCPCS: 93227; 93226 ==

== ENCOUNTER → 2021-04-02 09:44 | Outpatient (BNVA) | payer OTHER, SELFPAY | PROVIDERS: PCP Family Medicine; Referring Provider Family Medicine; Visit Provider Psychiatry & Neurology Neurology | DX: I63.40 Cerebral infarction due to embolism of unspecified cerebral artery (principal); I10 Essential (primary) hypertension | CPT/HCPCS: 99215 ==

== ENCOUNTER 2021-04-03 01:15 | Outpatient (CLI) | payer OTHER, SELFPAY ==
--- NOTE | 2021-04-03 15:13 | DI.US_ITS ---
APPROVED REPORT EXAM: Comprehensive 2D, Doppler, and color-flow Echocardiogram Patient Location: Out-Patient Indications: Cerebral emboli, Occipital parietal bilateral Other Information Study Quality: Adequate Conclusion Normal left ventricular wall thickness and chamber size. Estimated ejection fraction is 60%. There are no segmental wall motion abnormalities Normal right ventricular size and systolic function Both atria are normal in size The aortic valve is trileaflet and sclerotic with mild to moderate regurgitation Moderate mitral annular calcification. Trace mitral regurgitation Normal tricuspid valve with trace regurgitation. Unable to estimate right ventricular systolic press ure The pulmonic valve is not well visualized Wall motion Left Ventricle The left ventricle is normal size. The left ventricular systolic function is normal. The left ventric ular ejection fraction is within the normal range. There is normal left ventricular wall thickness. T here is normal LV segmental wall motion. There is no ventricular septal defect visualized. Left ventr icular thrombus is present. Left ventricular thrombus appears mobile. No left ventricular thrombus no soumya. Cannot rule out left ventricular thrombus. Left ventricular apex is not well visualized. A false tendon is noted (normal variant). LVEF is 60%. Right Ventricle Right ventricle is grossly normal in size. Right ventricular systolic function is grossly normal. Atria The left atrium size is normal. The right atrium size is normal. The interatrial septum is intact wit h no evidence for an atrial septal defect. Aortic Valve The Aortic valve is sclerotic. Aortic valve is trileaflet. There is no aortic valvular stenosis. Mild to moderate aortic regurgitation. Mitral Valve Moderate mitral annular calcification. No evidence of mitral valve stenosis. Trace mitral regurgitati on. Tricuspid Valve The tricuspid valve is normal in structure. There is no tricuspid valve stenosis. Trace tricuspid reg urgitation. Unable to assess PA pressure. Pulmonic Valve Pulmonic valve is not well visualized. There is no pulmonic valvular stenosis. There is no pulmonic v alvular regurgitation. Great Vessels The aortic root is normal in size. The ascending aorta is normal in size. Aortic arch is not well vis ualized. IVC is normal in size and collapses >50% with inspiration. Pericardium There is no pericardial effusion. 2D Dimensions IVSD d PLAX 0.84 cm F: 0.6-1.0 LV Vol A2C d MOD 74.1 mL LVPW d PLAX 0.86 cm F: 0.6 - 1.0 LV Vol A4C d MOD 81.6 mL LVID d PLAX 4.52 cm F: 3.8 - 5.2 LV EF A4C MOD 58.2 % LVDs 3.10 cm F: 2.2 - 3.5 LV EF A2C MOD 60.5 % Ao Root d 2.78 cm F: 2.7 - 3.3 LV EF Biplane MOD 60.1 % RA Area A4C 11.84 cm2 SV 47.96 mL RA Vol/ BSA A4C s A-L 17.3 mL/m2 SV Index 29.25 mL/m2 Ao Asc Diam d 3.22 cm F: 2.3 - 3.1 LV EF Teichholz 58.7 % LVEF (Farr's) 60.14 % F: 54 - 74 LV Volume 64.19 mL F: 46 - 106 LV Volume Index 39.38 mL/m2 F: 29 - 61 LV Vol Biplane MOD 79.7 mL FS 30.85 % M-Mode TAPSE 2.41 cm (M/F) >1.7 LV Diastology MV E' medial 0.056 (>0.07 m/s) E/A Ratio 0.9 LV E/e MED 19.35 (<14) MV E Vmax 1.08 (0.4-1.3 m/s) MV E' lateral 0.088 (>0.1 m/s) MV A Vmax 1.20 (0.4-1.3 m/s) LV E/e LAT 12.25 (<14) MV E/A Ratio 0.87 MV E/E' medial 19.37 MV E/E' lateral 12.27 Aortic Valve LVOT Area 3.03 cm2 AoV Area Vmax 2.08 cm2 LVOT Vmax 1.14 m/s AoV Area/ BSA (Vmax) 1.27 cm2/m2 LVOT Mean Harvey. 0.70 m/s SABAS Mean Harvey. 1.84 cm2 LVOT Peak Grad 5.2 mmHg SABAS Mean Harvey. Index 1.13 cm2/m2 LVOT Mean Grad 2.4 mmHg AR DT 1404 msec LVOT VTI 0.273 m AR PHT 407 msec LVOT Diam s 1.95 cm AoV Vmax 1.66 m/s Velocity Ratio 0.68 AoV Mean Harvey. 1.14 m/s AoV Peak Grad 11.1 mmHg LVOT SV 82.63 mL AoV Mean Grad 5.9 mmHg AoV VTI 0.351 m AoV Area VTI 2.35 cm2 AoV Area/ BSA (VTI) 1.44 cm/m2 Mitral Valve MV DT 257 (160-240 msec) MV PHT 75 msec MV Area PHT 2.95 cm2 MV VTI 0.343 m MV Area VTI 2.41 (4.0-6.0 cm2) Pulmonary Valve PV Vmax 1.08 (0.5-1.5 m/s) RVOT Peak Gr. 3.16 mmHg PV Peak Grad 4.6 mmHg RVOT Mean Gr. 1.60 mmHg PV Mean Grad 2.5 mmHg RVOT VTI 0.203 m PV VTI 0.234 m RVOT Vmax 0.89 m/s
== END 2021-04-03 01:35 ==
PROVIDERS: PCP Family Medicine; Visit Provider Physician Assistant
DX: I66.8 Occlusion and stenosis of other cerebral arteries (principal); I35.1 Nonrheumatic aortic (valve) insufficiency
CPT/HCPCS: 93306

== ENCOUNTER 2021-04-03 04:33 | Outpatient (CLI) | payer MEDICARE, SELFPAY ==
--- NOTE | 2021-05-04 10:40 | W.CARDEVENT ---
Date of service: 05/04/21 Time of Service: 10:40 Cardiac Event Recorder Referring Provider:: Naomi Jack Indications:: CVA Cardiac Event Note: This is a 30-day event monitor ordered because of cerebrovascular accident Rhythm throughout was sinus with an average heart rate of 72. Minimum was 58, maximum 104 No atrial fibrillation was recorded There was no high-grade AV block, no pauses greater than 3 seconds There were no apparent patient symptoms
== END 2021-04-03 04:34 | disposition home or self-care (01) ==
LOC: RT 04:33
PROVIDERS: PCP Family Medicine; Visit Provider Psychiatry & Neurology Neurology
DX: I63.9 Cerebral infarction, unspecified (principal)
CPT/HCPCS: 93270

== ENCOUNTER 2021-04-10 08:52 | Emergency (ER) | payer MEDICARE, SELFPAY ==
[2021-04-10 08:57] VITALS: BP 170/71; PULSE 66; RESP 16; TEMP 36.6; O2SAT 99
--- NOTE | 2021-04-10 09:15 | RT.EKG_ITS ---
APPROVED REPORT Exam: Resting ECG Reason for Exam: left arm pain Patient Location: E HR:64 bpm ECG Measurements Heart Rate 64 AXIS GA 224 P 77 QRSd 76 QRS 20 QT 469 T 30 QTc 484 Conclusion Sinus rhythm...normal P axis, V-rate 60- 99 Prolonged GA interval...GA >220, V-rate 50- 90 sinus rhythm 64, normal axis, prolonged GA interval, septal Q waves, no STEMI, nondiagnostic EKG
--- NOTE | 2021-04-10 09:27 | W.ED.GENAD ---
Discharge Plan Disposition Patient Disposition: HOME Condition: Stable Discharge Details Clinical Impression: Arm pain, left Primary Care Provider: Gildardo Pizano ED Provider: Misty Castañeda Home Meds and New Rx's Prescriptions: New lidocaine [Lidoderm] 5 % adhesive patch,medicated 1 patch topical DAILY Qty: 15 RF: 0 diazepam [Valium] 5 mg tablet 5 mg PO BID PRN (Reason: muscle spasm) Qty: 8 RF: 0 Continued cholecalciferol (vitamin D3) 50 mcg (2,000 unit) capsule 5,000 unit PO DAILY RF: 0 clopidogrel [Plavix] 75 mg tablet 75 mg PO DAILY Qty: 90 RF: 3 aspirin 81 mg tablet 81 mg PO DAILY RF: 0 atorvastatin 20 mg tablet 20 mg PO DAILY RF: 0 amlodipine 5 mg tablet 5 mg PO DAILY RF: 0 citalopram 40 MG tablet 40 mg PO DAILY RF: 0 One Daily Womens 50 Plus 0.4 MG tablet 0.4 mg PO DAILY RF: 0 No Action hydrochlorothiazide 12.5 mg tablet 12.5 mg PO DAILY RF: 0 losartan 100 mg tablet 100 mg PO DAILY RF: 0 Discharge Instructions Instructions: Muscle Spasm (ED), Arm Pain (ED) Additional Instructions: Please return immediately to the emergency department if you develop any new or worsening symptoms, if your condition does not improve as expected, or if you become otherwise concerned. It is extremely important that you call soon as possible to make an appointment to be seen in follow-up for this visit by your primary care doctor. Referrals: Gildardo Pizano [Primary Care Provider] - Discharge Data Discharge Date/Time-TO BE ENTERED AT DEPARTURE: 04/10/21 14:54 Medical Decision Making Anette Zimmerman is a 70-year-old woman with history of hyperlipidemia, hypertension, recent embolic stroke presenting to emergency department with 2 weeks of gradually worsening left arm pain, severe since yesterday, from left neck to left fingers. On exam patient is uncomfortable but well and nontoxic-appearing. There is significant tenderness to palpation of the left trapezius and diffusely of the left shoulder. LUE neurovascularly intact. Concern for radiculopathy of unknown cause (concern for possible epidural hematoma given recent antiplatelet therapy initiation just prior to onset of symptoms), muscle spasm, other. Doubt septic arthritis given extensive area of pain, doubt acute coronary syndrome. Exam/hx not c/w DVT, acute aortic or arterial pathology, CVA, sepsis. Plan for IV placement, screening labs, IV morphine for pain, EKG. MRI c/s. Pt is opiate naive, plan for low dose morphine. Labs reviewed, non-diagnostic. Pt reports pain unchanged with valium. MRI negative for acute process. Pt reports significant improvement in symptoms with valium, reports that valium now wearing off and requests additional salas prior to discharge. Plan for valium, lidoderm patch. Will provide short course valium rx and lidoderm patch rx. Pt amenable to d/c to home with outpt f/u. I had a lengthy discussion with Patient regarding return to emergency department precautions, home care, and importance of outpatient follow-up. Pt verbalizes understanding of the plan and is amenable. Patient discharged to home with clear plan for outpatient follow-up. All questions were answered. Disposition decision was made weighing the risks and benefits of hospitalization versus outpatient treatment, the risk for further decompensation, and the patient's wishes. Medical Records Medical records reviewed: Yes I reviewed the patient's medical records. Imaging Data Radiologic Study: Attestation: I personally reviewed and interpreted this imaging study as follows: Radiologist's impression: EXAM: MR CERVICAL SPINE WO/W CLINICAL HISTORY: severe left arm radiculopathy, numbness TECHNIQUE: Multiplanar multisequence MRI of the cervical spine was performed. Both noninfused and contrast infused sequences were performed. IV contrast injected was 13 mL Dotarem COMPARISON: No exams were available for comparison FINDINGS: CERVICOMEDULLARY JUNCTION: Intact with no evidence of cerebellar tonsillar ectopia. No obvious abnormality of the odontoid process. No evidence of Chiari 1 malformation. CERVICAL SPINAL CORD: There is no abnormal signal in the cervical spinal cord and no evidence of focal cord atrophy nor focal cord swelling. OSSEOUS:There are no cervical fractures evident. No significant osseous lesions in the cervical vertebrae. There is no abnormal intraosseous enhancement. There is no abnormal enhancement in the spinal cord epidural space nor abnormal paravertebral enhancement INDIVIDUAL LEVELS: C2-3: No disc herniation nor central canal stenosis. No foraminal stenosis. No facet arthropathy. C3-4: No disc herniation nor central canal stenosis.No facet arthropathy. No foraminal stenosis. C4-5: Mild decreased disc height. Mild annular bulging. Small right-sided Luschka joint osteophyte. No central spinal canal stenosis. Mild bilateral foraminal stenosis. Only mild degenerative changes in the facet joints C5-6: Moderate decreased disc height and signal. Anterior osseous lipping. Small right-sided disc-osteophyte complex. Mild foraminal stenosis on the right side. No foraminal stenosis on the left side. Central canal dimensions are lower normal. C6-7: Normal disc height and signal. No disc herniation. No canal stenosis. No foraminal stenosis. No facet arthropathy. C7-T1: No disc herniation nor central canal stenosis. No facet arthropathy.No foraminal stenosis. IMPRESSION: 1. Mild findings as described above. 2. No abnormal intraosseous nor epidural enhancement. No abnormal enhancement within the cervical spinal cord. Lab Data Lab results reviewed: Yes I reviewed the patient's lab results. Labs: Laboratory Tests Range/Units 04/10/21 04/10/21 04/10/21 09:45 09:45 09:45 WBC (4.4-10.8) 10^3/uL 5.92 RBC (3.93-5.22) 10^6/uL 4.32 Hgb (11.2-15.7) g/dL 12.6 Hct (36.0-46.0) % 38.0 MCV (80-95) fL 88.0 MCH (27.0-33.0) pg 29.2 MCHC (32.0-36.0) % 33.2 RDW (11.7-14.6) % 12.1 Plt Count (130-400) 10^3/uL 273 MPV (8.0-11.0) fL 9.6 Immature Gran % 0.3 Neutrophils % 70.8 Lymphocytes % 16.6 Monocytes % 8.8 Eosinophils % 3.2 Basophils % 0.3 Nucleated RBC % % 0 Absolute Neutrophils (1.2-6.7) 10^3/uL 4.19 Absolute Lymphocytes (1.2-3.4) 10^3/uL 0.98 L Absolute Monocytes (0.1-0.8) 10^3/uL 0.52 Absolute Eosinophils (0.0-0.7) 10^3/uL 0.19 Absolute Basophils (0.0-0.2) 10^3/uL 0.02 ESR (0-30) mm/hr 15 PT (9.3-11.0) sec INR (0.9-1.1) Sodium (136-145) mmol/L 141 Potassium (3.5-5.1) mmol/L 3.5 Chloride (98-107) mmol/L 104 Carbon Dioxide (21.0-32.0) mmol/L 29.6 Anion Gap (3-11) mmol/L 7.4 BUN (7-18) mg/dL 16 Creatinine (0.55-1.02) mg/dL 0.9 Estimated GFR/1.73 m2 (mL/min/1.73m2) >= 60.00 Glucose (74-106) mg/dL 93 Calcium (8.5-10.1) mg/dL 8.9 Total Bilirubin (0.2-1.0) mg/dL 0.4 AST (15-37) U/L 7 L ALT (14-59) U/L 22 Alkaline Phosphatase (46-116) U/L 51 Troponin I (<0.06) ng/mL C-Reactive Protein (0.0-0.3) mg/dL < 0.05 Total Protein (6.4-8.2) g/dL 7.3 Albumin (3.4-5.0) g/dL 3.6 Range/Units 04/10/21 04/10/21 09:45 09:45 WBC (4.4-10.8) 10^3/uL RBC (3.93-5.22) 10^6/uL Hgb (11.2-15.7) g/dL Hct (36.0-46.0) % MCV (80-95) fL MCH (27.0-33.0) pg MCHC (32.0-36.0) % RDW (11.7-14.6) % Plt Count (130-400) 10^3/uL MPV (8.0-11.0) fL Immature Gran % Neutrophils % Lymphocytes % Monocytes % Eosinophils % Basophils % Nucleated RBC % % Absolute Neutrophils (1.2-6.7) 10^3/uL Absolute Lymphocytes (1.2-3.4) 10^3/uL Absolute Monocytes (0.1-0.8) 10^3/uL Absolute Eosinophils (0.0-0.7) 10^3/uL Absolute Basophils (0.0-0.2) 10^3/uL ESR (0-30) mm/hr PT (9.3-11.0) sec 10.2 INR (0.9-1.1) 1.0 Sodium (136-145) mmol/L Potassium (3.5-5.1) mmol/L Chloride (98-107) mmol/L Carbon Dioxide (21.0-32.0) mmol/L Anion Gap (3-11) mmol/L BUN (7-18) mg/dL Creatinine (0.55-1.02) mg/dL Estimated GFR/1.73 m2 (mL/min/1.73m2) Glucose (74-106) mg/dL Calcium (8.5-10.1) mg/dL Total Bilirubin (0.2-1.0) mg/dL AST (15-37) U/L ALT (14-59) U/L Alkaline Phosphatase (46-116) U/L Troponin I (<0.06) ng/mL < 0.05 C-Reactive Protein (0.0-0.3) mg/dL Total Protein (6.4-8.2) g/dL Albumin (3.4-5.0) g/dL ECG Data Attestation: I personally reviewed and interpreted this ECG (s) as follows: Interpretation: EKG shows sinus rhythm 64, normal axis, prolonged IA interval, septal Q waves, no STEMI, nondiagnostic EKG HPI General Mode of arrival: ambulatory. Date/Time Provider Initiated Documentation: 04/10/21 09:11. Limitations to Documentation: no limitations. Information obtained by: patient, family, RN notes reviewed and old records reviewed. HPI Narrative: Anette Zimmerman is a 70 y/o woman with history of hypertension, hyperlipidemia, recent embolic stroke 03/19/2021 now on Plavix/aspirin presenting to the emergency department with left-sided arm pain. Patient reports that approximately 2 weeks ago she noticed pain in her left forearm. Pain has gradually progressed, including her left hand left shoulder and left neck. Patient reports that pain has become excruciating since yesterday. She reports that any movement/change in position makes her pain worse. Patient also reports that several days ago she slept differently and woke up with no pain in her arm for the first time since onset, however pain rapidly returned. She denies any other pain, fever, cough, shortness of breath, vomiting, diarrhea, rash. She reports that her left arm feels generally weak, and she reports numbness in her left thumb. No other weakness or numbness. Patient points to the left trapezius as area of worst pain. Patient reports that pain does not seem to be worse or localized to one joint, pain is worse in trapezius area, upper arm, forearm and shoulder joint and elbow joint. Related Data Home Medications Medication Instructions Recorded Confirmed One Daily Womens 50 Plus 0.4 mg PO DAILY 01/03/17 04/10/21 citalopram 40 mg PO DAILY 01/03/17 04/10/21 aspirin 81 mg tablet 81 mg PO DAILY 08/30/19 04/10/21 cholecalciferol (vitamin D3) 50 5,000 unit PO DAILY cap 04/02/21 04/10/21 mcg (2,000 unit) capsule clopidogrel 75 mg tablet 75 mg PO DAILY #90 tab 04/02/21 04/10/21 amlodipine 5 mg tablet 5 mg PO DAILY 04/10/21 04/10/21 atorvastatin 20 mg tablet 20 mg PO DAILY 04/10/21 04/10/21 diazepam [Valium] 5 mg PO BID PRN #8 tab 04/10/21 hydrochlorothiazide 12.5 mg tablet 12.5 mg PO DAILY 04/10/21 lidocaine [Lidoderm] 1 patch TOPICAL DAILY #15 ea 04/10/21 losartan 100 mg tablet 100 mg PO DAILY 04/10/21 Previous Rx's Medication Instructions Recorded clopidogrel 75 mg tablet 75 mg PO DAILY #90 tab 04/02/21 diazepam [Valium] 5 mg PO BID PRN #8 tab 04/10/21 lidocaine [Lidoderm] 1 patch TOPICAL DAILY #15 ea 04/10/21 Allergies Allergy/AdvReac Type Severity Reaction Status Date / Time bupropion [From Wellbutrin] Allergy Unverified 04/10/21 09:02 prednisone Allergy Unverified 04/10/21 09:02 polyethylene glycol AdvReac Intermediate Verified 04/10/21 09:02 simvastatin [From Zocor] AdvReac Unverified 04/10/21 09:02 varenicline [From Chantix] AdvReac Unverified 04/10/21 09:02 General Stated Complaint: Orthopedic RONNY: 4 Review of Systems Narrative: Constitutional: denies fevers Eyes: denies eye pain ENT: denies ear pain, dental pain, sore throat Cardiovascular: denies chest pain, edema Respiratory: denies SOB, cough GI: denies abdominal pain, vomiting, diarrhea : denies flank pain MSK: denies back pain, neck pain, arthralgias, reports left neck/shoulder/upper arm/forearm myalgias Skin: denies rash Neuro: denies headaches, reports numbness, weakness as per HPI PENDING SALE TO [facility] Medical History Allergic rhinitis Anxiety with depression Chronic diarrhea Chronic eczematous otitis externa of both ears Hyperlipidemia Hypertension Obesity Osteopenia Pre-diabetes Snoring Surgical History H/O section x2 S/P shoulder hemiarthroplasty 2011 Family History Father Heart disease Mother Stroke Social History Smoking/Tobacco Use Status: Former Tobacco Use Smoking risk assessment performed?: Yes Alcohol Intake: current Alcohol Intake frequency: holidays/special occasions only Drug use: Never Substance use type: does not use Details: CBD for pack pain Household members: spouse Number of Children: 2 current occupation: Retired educator Do you feel safe at home: Yes Do you feel safe in your relationship?: Yes Exam Narrative Exam Narrative: Constitutional: Appears uncomfortable but well and non-toxic, pleasant, conversing normally HENT: head atraumatic/normocephalic/normal inspection, mucous membranes moist Eyes: conjunctiva normal, sclera normal, pupils 3mm b/l Neck: no stridor, normal ROM, trachea midline Resp: normal work of breathing, speaking in full sentences Cardio: normal rate, normal rhythm Back: normal inspection, no rash Skin: warm, dry, normal color, no rash Neuro: alert, not altered, grossly non-focal, normal tone Ext: no edema of bilateral lower extremities or bilateral upper extremities. Inspection of bilateral upper extremities is normal and symmetric. There are no skin or color changes to the left upper extremity. Significant tenderness to palpation of the left trapezius, diffusely of the left shoulder, left upper arm, and left forearm. There is no tenderness palpation of the left elbow, wrist, or hand. Radial pulses are intact and symmetric. Patient is able to range the left shoulder, somewhat limited secondary to pain. Normal ROM wrist and elbow. Motor 5 of 5 bilateral upper extremities. Psych: normal mood, normal affect, normal behavior Course Vital Signs Vital signs: Vital Signs Temperature 36.6 C 04/10/21 08:57 Pulse 66 04/10/21 08:57 Respiratory Rate 16 04/10/21 08:57 Blood Pressure 170/71 H 04/10/21 08:57 Pulse Oximetry 99 04/10/21 08:57 Temperature 36.6 C 04/10/21 08:57 Temperature Source Skin 04/10/21 08:57 Pulse 66 04/10/21 08:57 Respiratory Rate 16 04/10/21 08:57 Respiratory Effort Non-Labored 04/10/21 08:57 Blood Pressure 170/71 H 04/10/21 08:57 Blood Pressure Position Sitting 04/10/21 08:57 Pulse Oximetry 99 04/10/21 08:57 Oxygen Delivery Method Room Air 04/10/21 08:57 Oxygen Flow Rate 0 04/10/21 08:57 Pain Level 10 04/10/21 08:57
[2021-04-10 10:05] LABS: Abs Immature Grans 0.02 10^3/uL (0.0-0.06); Absolute Basophil Count 0.02 10^3/uL (0.0-0.2); Absolute Eosinophil Count 0.19 10^3/uL (0.0-0.7); Absolute Lymphocyte Count 0.98 10^3/uL (1.2-3.4); Absolute Monocyte Count 0.52 10^3/uL (0.1-0.8); Absolute Neutrophil Count 4.19 10^3/uL (1.2-6.7); Basophils % 0.3; Eosinophils % 3.2; HGB 12.6 g/dL (11.2-15.7); Immature Grans % 0.3; Lymphocytes % 16.6; MCH 29.2 pg (27.0-33.0); MCHC 33.2 % (32.0-36.0); MPV 9.6 fL (8.0-11.0); Monocytes % 8.8; Neutrophils % 70.8; Nucleated RBC 0 %; Platelet Count 273 10^3/uL (130-400); RBC 4.32 10^6/uL (3.93-5.22); RDW 12.1 % (11.7-14.6); RDW-SD 39.1 fL; WBC 5.92 10^3/uL (4.4-10.8)
[2021-04-10 10:07] LABS: ESR 15 mm/hr (0-30)
[2021-04-10 10:15] LABS: Prothrombin Time 10.2 sec (9.3-11.0)
[2021-04-10 10:20] LABS: ALT 22 U/L (14-59); AST 7 U/L (15-37); Albumin 3.6 g/dL (3.4-5.0); Alkaline Phosphatase 51 U/L (46-116); Anion Gap 7.4 mmol/L (3-11); BUN 16 mg/dL (7-18); Bilirubin, Total 0.4 mg/dL (0.2-1.0); CO2 29.6 mmol/L (21.0-32.0); CREATININE 0.9 mg/dL (0.55-1.02); Calcium 8.9 mg/dL (8.5-10.1); Chloride 104 mmol/L (98-107); Glucose 93 mg/dL (74-106); Potassium 3.5 mmol/L (3.5-5.1); Sodium 141 mmol/L (136-145); Total Protein 7.3 g/dL (6.4-8.2)
[2021-04-10 10:22] LABS: C-Reactive Protein < 0.05 mg/dL (0.0-0.3)
[2021-04-10 10:55] VITALS: BP 163/55; PULSE 64; RESP 14; TEMP 36.5; O2SAT 99
--- NOTE | 2021-04-10 11:00 | DI.MRI_ITS ---
Exam(s) MR CERVICAL SPINE WO/W EXAM: MR CERVICAL SPINE WO/W CLINICAL HISTORY: severe left arm radiculopathy, numbness TECHNIQUE: Multiplanar multisequence MRI of the cervical spine was performed. Both noninfused and c ontrast infused sequences were performed. IV contrast injected was 13 mL Dotarem COMPARISON: No exams were available for comparison FINDINGS: CERVICOMEDULLARY JUNCTION: Intact with no evidence of cerebellar tonsillar ectopia. No obvious abnor mality of the odontoid process. No evidence of Chiari 1 malformation. CERVICAL SPINAL CORD: There is no abnormal signal in the cervical spinal cord and no evidence of foca l cord atrophy nor focal cord swelling. OSSEOUS:There are no cervical fractures evident. No significant osseous lesions in the cervical vert ebrae. There is no abnormal intraosseous enhancement. There is no abnormal enhancement in the spinal cord epidural space nor abnormal paravertebral enhance ment INDIVIDUAL LEVELS: C2-3: No disc herniation nor central canal stenosis. No foraminal stenosis. No facet arthropathy. C3-4: No disc herniation nor central canal stenosis.No facet arthropathy. No foraminal stenosis. C4-5: Mild decreased disc height. Mild annular bulging. Small right-sided Luschka joint osteophyte. No central spinal canal stenosis. Mild bilateral foraminal stenosis. Only mild degenerative hudson es in the facet joints C5-6: Moderate decreased disc height and signal. Anterior osseous lipping. Small right-sided disc-o steophyte complex. Mild foraminal stenosis on the right side. No foraminal stenosis on the left ryan e. Central canal dimensions are lower normal. C6-7: Normal disc height and signal. No disc herniation. No canal stenosis. No foraminal stenosis. No facet arthropathy. C7-T1: No disc herniation nor central canal stenosis. No facet arthropathy.No foraminal stenosis. IMPRESSION: 1. Mild findings as described above. 2. No abnormal intraosseous nor epidural enhancement. No abnormal enhancement within the cervical sp inal cord. DATA REPOSITORY:
[2021-04-10] MEDS: diazePAM 5 MG TAB PO ×2 (11:09→13:50)
[2021-04-10 11:49] LABS: Troponin I < 0.05 ng/mL (<0.06)
[2021-04-10] MEDS: Normal Saline Flush 10 ML SYR IVP (12:36)
[2021-04-10] MEDS: Gadoterate meglumine 20 ML VIAL 13 ML IVP (12:36)
[2021-04-10 12:54] VITALS: BP 158/84; PULSE 67; RESP 14; TEMP 36.2; O2SAT 99
[2021-04-10] MEDS: Lidocaine 5% Patch 1 PATCH TP (13:50)
== END 2021-04-10 14:54 | disposition home or self-care (01) ==
PROVIDERS: Emergency Provider Student in an Organized Health Care Education/Training Program; PCP Family Medicine
DX: M79.602 Pain in left arm (principal)
CPT/HCPCS: 36415; 80053; 85652; 93005; 96374; 96375; 99285; 72156; 84484; 85025; 85610; 86140; 93010; 99284

== ENCOUNTER 2021-05-17 12:17 | Outpatient (CLI) | payer MEDICARE, SELFPAY ==
--- NOTE | 2021-05-17 12:15 | RT.EKG_ITS ---
APPROVED REPORT Exam: Resting ECG Reason for Exam: Abnormal EKG findings Patient Location: O HR:79 bpm ECG Measurements Heart Rate 79 AXIS TN 127 P -84 QRSd 84 QRS 11 QT 415 T 4 QTc 476 Conclusion Sinus or ectopic atrial rhythm...P axis (-45,135) Poor R wave progression, possible Anteroseptal infarct, old...Q >40mS, V1-V2 Baseline wander in lead(s) V1,V2
== END 2021-05-17 12:18 | disposition home or self-care (01) ==
LOC: DI.CARD 12:18
PROVIDERS: PCP Family Medicine; Visit Provider Internal Medicine Cardiovascular Disease
DX: R94.31 Abnormal electrocardiogram [ECG] [EKG] (principal)
CPT/HCPCS: 93010

== ENCOUNTER → 2021-05-17 13:24 | Outpatient (BNVA) | payer MEDICARE, SELFPAY | PROVIDERS: PCP Family Medicine; Referring Provider Family Medicine; Visit Provider Internal Medicine Cardiovascular Disease | DX: R94.31 Abnormal electrocardiogram [ECG] [EKG] (principal); I63.40 Cerebral infarction due to embolism of unspecified cerebral artery; E78.5 Hyperlipidemia, unspecified | CPT/HCPCS: 93005; 99203; 99214 ==

== ENCOUNTER 2021-06-07 16:14 | Outpatient (REF) | payer MEDICARE, SELFPAY ==
[2021-06-07 22:05] LABS: ALT 36 U/L (14-59); AST 23 U/L (15-37); Albumin 3.9 g/dL (3.4-5.0); Alkaline Phosphatase 61 U/L (46-116); Anion Gap 8.1 mmol/L (3-11); BUN 21 mg/dL (7-18); Bilirubin, Total 0.4 mg/dL (0.2-1.0); CO2 28.9 mmol/L (21.0-32.0); CREATININE 1.1 mg/dL (0.55-1.02); Calculated LDL 90 mg/dL (<100); Chloride 105 mmol/L (98-107); Cholesterol 193 mg/dL (<200); Glucose 138 mg/dL (74-106); HDL Cholesterol 48 mg/dL (40-60); Potassium 3.5 mmol/L (3.5-5.1); Sodium 142 mmol/L (136-145); Triglyceride 277 mg/dL (<150)
== END 2021-06-07 16:15 | disposition home or self-care (01) ==
LOC: NCHCN 16:14
PROVIDERS: PCP Family Medicine; Visit Provider Family Medicine
DX: E78.5 Hyperlipidemia, unspecified (principal)
CPT/HCPCS: 80053; 80061

== ENCOUNTER 2021-09-04 15:47 | Outpatient (REF) | payer MEDICARE, SELFPAY ==
[2021-09-04 21:18] LABS: Hemoglobin A1C 5.9 % (<5.7)
[2021-09-04 21:29] LABS: Anion Gap 12.3 mmol/L (3-11); BUN 22 mg/dL (7-18); CO2 23.7 mmol/L (21.0-32.0); CREATININE 1.2 mg/dL (0.55-1.02); Calcium 9.4 mg/dL (8.5-10.1); Chloride 102 mmol/L (98-107); Estimated GFR 44.41 (mL/min/1.73m2); Glucose 104 mg/dL (74-106); Potassium 4.3 mmol/L (3.5-5.1); Sodium 138 mmol/L (136-145); TSH (W/Ref FT4) 1.35 uIU/mL (0.36-3.74)
== END 2021-09-04 15:48 | disposition home or self-care (01) ==
LOC: NCHCN 15:47
PROVIDERS: PCP Family Medicine; Visit Provider Family Medicine
DX: R68.83 Chills (without fever) (principal)
CPT/HCPCS: 80048; 83036; 84443

== ENCOUNTER 2021-12-06 14:37 | Outpatient (REF) | payer MEDICARE, SELFPAY ==
[2021-12-06 15:48] LABS: Hemoglobin A1C 5.8 % (<5.7)
[2021-12-06 16:37] LABS: Anion Gap 10.6 mmol/L (3-11); BUN 17 mg/dL (7-18); CO2 26.4 mmol/L (21.0-32.0); CREATININE 0.9 mg/dL (0.55-1.02); Calcium 9.1 mg/dL (8.5-10.1); Chloride 105 mmol/L (98-107); Glucose 110 mg/dL (74-106); Potassium 3.7 mmol/L (3.5-5.1); Sodium 142 mmol/L (136-145)
== END 2021-12-06 14:38 | disposition home or self-care (01) ==
LOC: NCHCN 14:37
PROVIDERS: PCP Family Medicine; Visit Provider Family Medicine
DX: R73.03 Prediabetes (principal); I10 Essential (primary) hypertension
CPT/HCPCS: 80048; 83036

== ENCOUNTER 2022-02-05 20:16 | Outpatient (REF) | payer MEDICARE, SELFPAY | END 2022-02-05 20:17 | disposition home or self-care (01) | LOC: NCHCN 20:16 | PROVIDERS: PCP Family Medicine; Visit Provider Family Medicine | DX: R39.9 Unspecified symptoms and signs involving the genitourinary system (principal) | CPT/HCPCS: 87086 ==

== ENCOUNTER 2022-09-17 19:02 | Outpatient (REF) | payer MEDICARE, SELFPAY ==
[2022-09-17 21:02] LABS: Hemoglobin A1C 6.2 % (<5.7)
[2022-09-17 21:13] LABS: ALT 42 U/L (14-59); AST 30 U/L (15-37); Albumin 3.8 g/dL (3.4-5.0); Alkaline Phosphatase 62 U/L (46-116); Anion Gap 10.2 mmol/L (3-11); BUN 17 mg/dL (7-18); Bilirubin, Total 0.5 mg/dL (0.2-1.0); CO2 24.8 mmol/L (21.0-32.0); Calcium 9.4 mg/dL (8.5-10.1); Calculated LDL 90 mg/dL (<100); Chloride 105 mmol/L (98-107); Cholesterol 181 mg/dL (<200); Estimated GFR 60.23 (mL/min/1.73m2); Glucose 109 mg/dL (74-106); HDL Cholesterol 53 mg/dL (40-60); Potassium 3.9 mmol/L (3.5-5.1); Sodium 140 mmol/L (136-145); Total Protein 7.6 g/dL (6.4-8.2); Triglyceride 190 mg/dL (<150)
== END 2022-09-17 19:03 | disposition home or self-care (01) ==
LOC: NCHCN 19:02
PROVIDERS: PCP Family Medicine; Visit Provider Family Medicine
DX: E78.5 Hyperlipidemia, unspecified (principal); R73.03 Prediabetes
CPT/HCPCS: 80053; 80061; 83036

== ENCOUNTER 2022-11-08 00:31 | Outpatient (CLI) | payer MEDICARE, SELFPAY ==
--- NOTE | 2022-11-08 12:10 | DI.MAMMO_ITS ---
Exam(s) MAMMO SCREENING EXAM: MAMMO SCREENING CLINICAL HISTORY: SCREENING FOR BREAST CANCER Z12.39 TECHNIQUE: Mammograms were interpreted according to the usual protocol including computer analysis w Qik CAD system, tomosynthesis and C-view imaging. COMPARISON: 2016 through 2020 FINDINGS: The breasts are composed of mainly fatty density , Breast Density category A. No suspicious masses or suspicious microcalcifications are seen. No skin thickening or abnormal axillary lymph nodes are seen. There has been no significant change from prior exams. IMPRESSION: BI-RADS Category 1, Negative mammogram Yearly screening mammography is recommended. Breast Density - Category A, fatty density. A negative radiographic report should not delay biopsy if a dominant or clinically suspicious mass is present. Up to ten percent of cancers are not identified on mammography. A negative report may reinforce clinical impression. Adenosis and dense breasts may obscure an underlying neoplasm. False positive reports average 6 to 10%. Patient will receive a letter notifying them of these results.
== END 2022-11-08 00:51 ==
LOC: DI 00:31
PROVIDERS: PCP Family Medicine; Visit Provider Family Medicine
DX: Z12.31 Encounter for screening mammogram for malignant neoplasm of breast (principal)
CPT/HCPCS: 77063; 77067

== ENCOUNTER 2023-09-19 15:34 | Outpatient (REF) | payer MEDICARE, SELFPAY ==
[2023-09-19 21:22] LABS: HCT 39.6 % (36.0-46.0); HGB 13.3 g/dL (11.2-15.7); MCH 29.8 pg (27.0-33.0); MCHC 33.6 % (32.0-36.0); MCV 89 fL (80-95); Platelet Count 354 10^3/uL (130-400); RBC 4.47 10^6/uL (3.93-5.22); RDW 11.9 % (11.7-14.6); RDW-SD 38.1 fL; WBC 7.32 10^3/uL (4.4-10.8)
[2023-09-19 21:37] LABS: Hemoglobin A1C 5.6 % (<5.7)
[2023-09-19 21:58] LABS: ALT 25 U/L (14-59); AST 21 U/L (15-37); Albumin 3.8 g/dL (3.4-5.0); Alkaline Phosphatase 53 U/L (46-116); Anion Gap 9.3 mmol/L (3-11); BUN 19 mg/dL (7-18); Bilirubin, Total 0.5 mg/dL (0.2-1.0); CO2 27.7 mmol/L (21.0-32.0); CREATININE 1.2 mg/dL (0.55-1.02); Calcium 9.7 mg/dL (8.5-10.1); Calculated LDL 92 mg/dL (<100); Chloride 104 mmol/L (98-107); Cholesterol 175 mg/dL (<200); Estimated GFR 48.09 (mL/min/1.73m2); Glucose 114 mg/dL (74-106); HDL Cholesterol 49 mg/dL (40-60); Potassium 3.9 mmol/L (3.5-5.1); Sodium 141 mmol/L (136-145); TSH (W/Ref FT4) 1.48 uIU/mL (0.36-3.74); Total Protein 7.5 g/dL (6.4-8.2); Triglyceride 174 mg/dL (<150); Vitamin B12 473 pg/mL (193-986)
== END 2023-09-19 15:35 | disposition home or self-care (01) ==
LOC: NCHCN 15:34
PROVIDERS: PCP Family Medicine; Visit Provider Family Medicine
DX: E78.5 Hyperlipidemia, unspecified (principal); R73.03 Prediabetes; R41.9 Unspecified symptoms and signs involving cognitive functions and awareness
CPT/HCPCS: 80053; 80061; 85027; 82607; 83036; 84443

== ENCOUNTER 2024-02-10 21:52 | Outpatient (REF) | payer MEDICARE, SELFPAY | END 2024-02-10 21:53 | disposition home or self-care (01) | LOC: NCHCN 21:52 | PROVIDERS: PCP Family Medicine; Visit Provider Physician Assistant | DX: R30.0 Dysuria (principal) | CPT/HCPCS: 87077; 87086; 87186 ==

== ENCOUNTER 2024-07-19 18:13 | Outpatient (REF) | payer MEDICARE, OTHER, SELFPAY | END 2024-07-19 18:14 | disposition home or self-care (01) | LOC: NCHCN 18:13 | PROVIDERS: PCP Family Medicine; Visit Provider Family Medicine | DX: N39.0 Urinary tract infection, site not specified (principal); R82.89 Other abnormal findings on cytological and histological examination of urine | CPT/HCPCS: 87086 ==

== ENCOUNTER 2024-09-14 10:59 | Outpatient (REF) | payer MEDICARE, OTHER, SELFPAY ==
[2024-09-14 15:06] LABS: Hemoglobin A1C 5.6 % (<5.7)
[2024-09-14 15:26] LABS: ALT 36 U/L (14-59); AST 28 U/L (15-37); Albumin 3.6 g/dL (3.4-5.0); Alkaline Phosphatase 48 U/L (46-116); BUN 14 mg/dL (7-18); Bilirubin, Total 0.6 mg/dL (0.2-1.0); CREATININE 1.2 mg/dL (0.55-1.02); Calcium 9.4 mg/dL (8.5-10.1); Calculated LDL 113 mg/dL (<100); Chloride 106 mmol/L (98-107); Cholesterol 201 mg/dL (<200); Glucose 107 mg/dL (74-106); HDL Cholesterol 59 mg/dL (>or=50); Potassium 3.9 mmol/L (3.5-5.1); Sodium 142 mmol/L (136-145); Triglyceride 148 mg/dL (<150)
== END 2024-09-14 11:00 | disposition home or self-care (01) ==
LOC: NCHCN 10:59
PROVIDERS: PCP Family Medicine; Visit Provider Family Medicine
DX: E78.5 Hyperlipidemia, unspecified (principal); Z00.00 Encounter for general adult medical examination without abnormal findings
CPT/HCPCS: 80053; 80061; 83036

== ENCOUNTER 2024-11-04 22:09 | Outpatient (REF) | payer MEDICARE, OTHER, SELFPAY | END 2024-11-04 22:10 | disposition home or self-care (01) | LOC: NCHCN 22:09 | PROVIDERS: PCP Family Medicine; Visit Provider Family Medicine | DX: R41.89 Other symptoms and signs involving cognitive functions and awareness (principal) | CPT/HCPCS: 87086 ==

== ENCOUNTER 2024-12-28 17:38 | Outpatient (REF) | payer MEDICARE, OTHER, SELFPAY ==
[2024-12-28 21:16] LABS: HCT 39.9 % (36.0-46.0); HGB 13.0 g/dL (11.2-15.7); MCH 29.5 pg (27.0-33.0); MCHC 32.6 % (32.0-36.0); MCV 91 fL (80-95); MPV 9.9 fL (8.0-11.0); Platelet Count 327 10^3/uL (130-400); RBC 4.40 10^6/uL (3.93-5.22); RDW 11.6 % (11.7-14.6); RDW-SD 38.7 fL; WBC 7.31 10^3/uL (4.4-10.8)
[2024-12-28 21:46] LABS: Hemoglobin A1C 5.7 % (<5.7)
[2024-12-28 22:03] LABS: ALT 43 U/L (14-59); AST 30 U/L (15-37); Albumin 3.7 g/dL (3.4-5.0); Alkaline Phosphatase 54 U/L (46-116); Anion Gap 5.4 mmol/L (3-11); BUN 15 mg/dL (7-18); Bilirubin, Total 0.5 mg/dL (0.2-1.0); CO2 30.6 mmol/L (21.0-32.0); Calcium 9.4 mg/dL (8.5-10.1); Chloride 103 mmol/L (98-107); Estimated GFR 53.06 (mL/min/1.73m2); Glucose 105 mg/dL (74-106); Potassium 4.6 mmol/L (3.5-5.1); Sodium 139 mmol/L (136-145); TSH (W/Ref FT4) 1.23 uIU/mL (0.36-3.74); Total Protein 7.3 g/dL (6.4-8.2); Vitamin B12 613 pg/mL (193-986)
== END 2024-12-28 17:39 | disposition home or self-care (01) ==
LOC: NCHCN 17:38
PROVIDERS: PCP Family Medicine; Visit Provider Family Medicine
DX: R73.03 Prediabetes (principal); F01.50 Vascular dementia, unspecified severity, without behavioral disturbance, psychotic disturbance, mood disturbance, and anxiety
CPT/HCPCS: 80053; 85027; 82607; 83036; 84443